=== PATIENT | male | born 1955 | race Caucasian/White ===

== ENCOUNTER 2017-05-25 14:29 | Emergency (ER) | payer BC ==
[~2017-05-25] VITALS: Ht 177.8 cm; Wt 99.8 kg
[~2017-05-25 14:29] MED LIST: CEL20 PO; TRAM50TA2 PO
[2017-05-25 15:17] VITALS: BP_SYST 159
[2017-05-25] MEDS ORDERED: KETOROLAC TROMETHAMINE 60 MG/2 ML VIAL IM ONE (15:45)
[2017-05-25 16:46] LABS: BILIRUBIN,URINE NEGATIVE (NEGATIVE); BLOOD, URINE NEGATIVE (NEGATIVE); CLARITY/URINE CLOUDY (CLEAR); COLOR,URINE YELLOW (YELLOW); GLUCOSE,URINE NEGATIVE (NEGATIVE); KETONES,URINE NEGATIVE (NEGATIVE); LEUKOCYTE ESTERASE ,URINE 3+ (NEGATIVE); NITRITE, URINE POSITIVE (NEGATIVE); PH,URINE 6.5 (5.0-8.0); PROTEIN URINE NEGATIVE (NEGATIVE); UROBILINOGEN,URINE 0.2 (0.2-1.0)
[2017-05-25 17:12] LABS: MUCUS,URINE None Seen /LPF (None Seen)
[2017-05-25 17:16] LABS: RBC,URINE NONE SEEN /HPF (0-3)
[2017-05-25 17:17] LABS: BACTERIA,URINE MANY /HPF (None Seen); WBC,URINE 50-80 /HPF (0-3)
[2017-05-25] MEDS ORDERED: DIPHENHYDRAMINE INJ 50 MG/ML VIAL IM ONE (17:30)
[2017-05-25] MEDS ORDERED: MORPHINE SULFATE 10 MG/ML VIAL IM ONE (17:30)
[2017-05-25 18:15] VITALS: BP_SYST 151
== END 2017-05-25 18:15 | disposition home or self-care (01) ==
LOC: SED 14:29
DX: N39.0 Urinary tract infection, site not specified (principal); M54.5 Low back pain; R03.0 Elevated blood-pressure reading, without diagnosis of hypertension; Z88.0 Allergy status to penicillin; Z88.6 Allergy status to analgesic agent
CPT/HCPCS: 72131; 81000; 87086; 87186; 96372; 99285; J1200; J1885; J2270